=== PATIENT | male | born 1965 | race Asian ===

== ENCOUNTER 2021-06-03 00:38 | Emergency (ER) | payer SELFPAY ==
[~2021-06-03] VITALS: Ht 162.6 cm; Wt 64.4 kg
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
--- NOTE | 2021-06-03 01:40 | NUR ---
Pt out of ER for CT.
--- NOTE | 2021-06-03 01:51 | NUR ---
Pt back to ER from CT.
--- NOTE | 2021-06-03 01:54 | NUR ---
Dr. Palmer at bedside.
[2021-06-03] MEDS ORDERED: CYCL5TAB PO (02:27)
[2021-06-03] MEDS ORDERED: NAPR-1164 PO (02:27)
--- NOTE | 2021-06-03 02:37 | NUR ---
Patient discharged to home in stable condition. Written and verbal after care instructions given. Patient verbalizes understanding of instructions. Stressed follow up or return to ER for worsening s/s. Pt. walks with steady gait. No signs of distress. Vss. All belongings sidra.
[2021-06-03 02:39] VITALS: BP 149/99
== END 2021-06-03 02:39 | disposition home or self-care (01) ==
LOC: ER 00:54
DX: S13.4XXA Sprain of ligaments of cervical spine, initial encounter (principal); V43.92XA Unspecified car occupant injured in collision with other type car in traffic accident, initial encounter; Y92.414 Local residential or business street as the place of occurrence of the external cause; R03.0 Elevated blood-pressure reading, without diagnosis of hypertension; M50.30 Other cervical disc degeneration, unspecified cervical region
CPT/HCPCS: 70450; 72125; A4663